=== PATIENT | female | born 1975 | race Caucasian/White ===

== ENCOUNTER → 2018-08-26 | Outpatient (CLI) | payer BC ==
[~2018-08-26] MED LIST: GADOBUTROL 10 ML VIAL IVP ONE
== END ==
LOC: FIMAGING 14:20
PROVIDERS: ATTEND Physician Assistant Medical
DX: M79.602 Pain in left arm (principal); R20.2 Paresthesia of skin; M50.322 Other cervical disc degeneration at C5-C6 level; R90.89 Other abnormal findings on diagnostic imaging of central nervous system; J34.1 Cyst and mucocele of nose and nasal sinus; Z82.0 Family history of epilepsy and other diseases of the nervous system
CPT/HCPCS: 82565-PO; A9585